=== PATIENT | male | born 1950 | race Caucasian/White ===

== ENCOUNTER → 2018-11-11 | Outpatient (REF) | payer MEDICARE ==
[2018-11-11 13:54] LABS: BASO # 0.1 10^3/uL (0.0-0.2); BASO % 1.6 % (0.0-1.0); EOS # 0.2 10^3/uL (0.0-0.50); EOS % 2.8 % (0.0-3.0); HEMATOCRIT 45.4 % (42.0-52.0); HEMOGLOBIN 15.3 g/dl (13.5-17.5); LYMPH # 1.7 10^3/uL (1.5-4.5); LYMPH % 20.9 % (24.0-44.0); MEAN CORPUSCULAR HEMOGLOBIN 29.6 pg (27.0-33.0); MEAN CORPUSCULAR HGB CONC 33.7 g/dl (32.0-36.5); MEAN CORPUSCULAR VOLUME 87.8 fl (80.0-96.0); MONO # 0.8 10^3/uL (0.0-0.8); MONO % 9.9 % (0.0-5.0); NEUTROPHILS # 5.1 10^3/uL (1.8-7.7); NEUTROPHILS % 64.5 % (36.0-66.0); PLATELET COUNT, AUTOMATED 236 10^3/uL (150-450); RED BLOOD COUNT 5.17 10^6/uL (4.30-6.10); WHITE BLOOD COUNT 7.9 10^3/uL (4.0-10.0)
[2018-11-11 14:07] LABS: ALBUMIN 3.5 GM/DL (3.2-5.2); ALT/SGPT 69 U/L (12-78); BILIRUBIN,TOTAL 0.5 MG/DL (0.2-1.0); BLOOD UREA NITROGEN 12 MG/DL (7-18); CALCIUM LEVEL 9.1 MG/DL (8.8-10.2); CARBON DIOXIDE LEVEL 31 MEQ/L (21-32); CHLORIDE LEVEL 104 MEQ/L (98-107); CHOLESTEROL LEVEL 196 MG/DL (<200); CHOLESTEROL RISK RATIO 6.322 (<5); CREATININE FOR GFR 1.12 MG/DL (0.70-1.30); FREE T4 1.51 NG/DL (0.76-1.46); GLOMERULAR FILTRATION RATE > 60.0 (>49); GLUCOSE, FASTING 97 MG/DL (70-100); HDL CHOLESTEROL 31 MG/DL (>40); LDL CHOLESTEROL 146 MG/DL (<100); NON-HDL-C 165 MG/DL; POTASSIUM SERUM 4.3 MEQ/L (3.5-5.1); SODIUM LEVEL 140 MEQ/L (136-145); TOTAL PROTEIN 6.9 GM/DL (6.4-8.2); TRIGLYCERIDES LEVEL 93 MG/DL (<150)
[2018-11-11 14:09] LABS: TOTAL 25(OH) VITAMIN D 22.1 NG/ML (30.0-100.0)
[2018-11-11 16:04] LABS: HEMOGLOBIN A1c 6.5 %
[2018-11-13 00:09] LABS: Lyme Disease IgG/IgM Antibodie <0.91 ISR (0.00-0.90); Lyme Disease IgM Ab Quantitati <0.80 index (0.00-0.79)
== END ==
LOC: M LAB REF 12:23
PROVIDERS: ATTEND Family Medicine
DX: M25.50 Pain in unspecified joint (principal); R53.83 Other fatigue; Q89.2 Congenital malformations of other endocrine glands; Z12.5 Encounter for screening for malignant neoplasm of prostate; E66.9 Obesity, unspecified; E88.81 Metabolic syndrome and other insulin resistance; R60.0 Localized edema
CPT/HCPCS: 80053; 80061; 82306; 83036; 84439; 84443; 85025; 86617; G0103

== ENCOUNTER 2025-02-19 17:23 | Inpatient (IN) | payer MEDICARE, OTHER ==
[~2025-02-19] VITALS: Ht 170.2 cm; Wt 144.6 kg
[2025-02-19 18:42] LABS: BASO # 0.1 10^3/uL (0.0-0.2); BASO % 0.8 % (0.0-1.0); EOS # 0.0 10^3/uL (0.0-0.5); EOS % 0.2 % (0.0-3.0); LYMPH # 2.0 10^3/uL (1.5-5.0); LYMPH % 14.0 % (24.0-44.0); MONO # 0.9 10^3/uL (0.0-0.8); MONO % 6.0 % (2.0-8.0); NEUTROPHILS # 11.4 10^3/uL (1.5-8.5); NEUTROPHILS % 78.6 % (36.0-66.0); PLATELET COUNT, AUTOMATED 184 10^3/uL (150-450)
[2025-02-19] MEDS: ONDANSETRON 4MG/2ML VIAL IV ONE ×2 (18:45→22:49)
[2025-02-19] MEDS: NS (Normal Saline) 0.9% 1,000 ML IV ONE ×2 (18:45→22:49)
[2025-02-19 19:08] LABS: CK-MB VALUE MASS 8.6 NG/ML (<3.6)
[2025-02-19 19:10] LABS: ALT/SGPT 58.0 U/L (7.0-40); AST/SGOT 96.0 U/L (<34); CALCIUM LEVEL 8.9 MG/DL (8.3-10.6); CARBON DIOXIDE LEVEL 23.0 MMOL/L (20-31); CHLORIDE LEVEL 107.0 MMOL/L (98-107); CREATININE FOR GFR 1.17 MG/DL (0.70-1.30); GLOMERULAR FILTRATION RATE 65.0 (>42); MAGNESIUM LEVEL 1.5 MG/DL (1.8-2.4); POTASSIUM SERUM 5.3 MMOL/L (3.5-5.1); SODIUM LEVEL 141.0 MMOL/L (136-145)
[2025-02-19 19:12] LABS: CPK CREATINE PHOSPHOKINASE 551.0 U/L (46-171); MB/CK RELATIVE INDEX 1.56 (< OR =4)
[2025-02-19] MEDS ORDERED: ISOVUE-370 76% 100 ML VIAL As Ordered ONE (19:14)
[2025-02-19] MEDS: MAG SULF 1GM/100ML (MAG RUN) 1 GM in IV 1 EA IV ONE ×2 (20:24→21:35)
[2025-02-19 20:36] LABS: CK-MB VALUE MASS 9.1 NG/ML (<3.6)
[2025-02-19 20:37] LABS: CPK CREATINE PHOSPHOKINASE 480.0 U/L (46-171); MB/CK RELATIVE INDEX 1.89 (< OR =4)
[2025-02-19 21:44] LABS: CK-MB VALUE MASS 10.1 NG/ML (<3.6)
[2025-02-19 21:54] LABS: KETONE, URINE AUTO RFX NEGATIVE (NEGATIVE); LEUKOCYTE ESTERASE UR AUTO RFX NEGATIVE (NEGATIVE); NITRITE, URINE AUTO RFX NEGATIVE (NEGATIVE); RBC, URINE AUTO RFX 0 /HPF (0-3); SQUAM EPITHELIAL CELL UR AURFX 0 /HPF (0-6); WBC, URINE AUTO RFX 0 /HPF (0-3)
[2025-02-19 21:54] LABS: CPK CREATINE PHOSPHOKINASE 500.0 U/L (46-171); MB/CK RELATIVE INDEX 2.02 (< OR =4)
[2025-02-19] MEDS: IPRATROPIUM 0.5 MG/ALBUTEROL 2.5 MG INH SOL UD 3 ML NEB ONE (22:14)
[2025-02-20] MEDS: PANTOPRAZOLE 40MG VIAL IV ONE (00:41)
[2025-02-20] MEDS: SUCRALFATE 1 GM TAB PO ONE (00:41)
[2025-02-20] MEDS ORDERED: SUCRALFATE 1 GM TAB PO ONE (00:45)
[2025-02-20 01:51] LABS: INR 1.32
[2025-02-20] MEDS: PANTOPRAZOLE SODIUM 40 MG in DEXTROSE 5% (D5W) ADV/MINI-BAG 50 ML IV SCH (02:18)
[2025-02-20 02:28] LABS: PLATELET COUNT, AUTOMATED 135 10^3/uL (150-450)
[2025-02-20 02:49] LABS: INR 1.33
[2025-02-20 02:52] LABS: ALT/SGPT 51.0 U/L (7.0-40); AST/SGOT 89.0 U/L (<34); CALCIUM LEVEL 8.6 MG/DL (8.3-10.6); CARBON DIOXIDE LEVEL 23.0 MMOL/L (20-31); CHLORIDE LEVEL 108.0 MMOL/L (98-107); CREATININE FOR GFR 1.32 MG/DL (0.70-1.30); GLOMERULAR FILTRATION RATE 56.3 (>42); POTASSIUM SERUM 4.5 MMOL/L (3.5-5.1); SODIUM LEVEL 142.0 MMOL/L (136-145)
[2025-02-20 04:30] LABS: PLATELET COUNT, AUTOMATED 138 10^3/uL (150-450)
[2025-02-20] MEDS: SUCRALFATE SUSP 1GM/10ML UD PO SCH (08:09)
[2025-02-20] MEDS ORDERED: ROSU20TA86 PO (08:16)
[2025-02-20] MEDS ORDERED: SPIR100T3 PO (08:16)
[2025-02-20] MEDS ORDERED: VENTAER INH (08:16)
[2025-02-20] MEDS ORDERED: POTA-151 PO (08:16)
[2025-02-20] MEDS ORDERED: SYNT100T PO (08:16)
[2025-02-20] MEDS ORDERED: BUDE10.7 IH (08:16)
[2025-02-20] MEDS ORDERED: IPRA0.00 INH (08:16)
[2025-02-20] MEDS ORDERED: TORS20TA2 PO (08:16)
[2025-02-20] MEDS ORDERED: HOME MED LIST COMPLETE! XX SCH (08:20)
[2025-02-20] MEDS: OCTREOTIDE ACETATE 100 MCG/ML VIAL **IV ADMINISTRATION ONLY IV SCH (10:39)
[2025-02-20] MEDS: ONDANSETRON 4MG/2ML VIAL IV PRN (10:48)
[2025-02-20] MEDS ORDERED: E-Z-HD 98% w/w 340 GM SUSP BTL As Ordered ONE (11:24)
[2025-02-20] MEDS ORDERED: E-Z-GAS II EFFERVESCENT PACKET (SODIUM BICARB./CITRIC ACID/SIMETHICONE) As Ordered ONE (11:24)
[2025-02-20] MEDS ORDERED: E-Z-PAQUE 96% w/w SUSP 176 GM BTL As Ordered ONE (11:24)
[2025-02-20 17:55] LABS: PLATELET COUNT, AUTOMATED 158 10^3/uL (150-450)
[2025-02-20] MEDS: IPRATROPIUM 0.5 MG/ALBUTEROL 2.5 MG INH SOL UD 3 ML NEB PRN (22:51)
[2025-02-21 02:11] VITALS: BP 124/56; TEMP 98.6; O2SAT 93
[2025-02-21 04:00] VITALS: BP 121/59; TEMP 98.9; O2SAT 97
[2025-02-21 06:11] LABS: PLATELET COUNT, AUTOMATED 138 10^3/uL (150-450)
[2025-02-21 06:36] LABS: ALT/SGPT 55.0 U/L (7.0-40); AST/SGOT 82.0 U/L (<34); CALCIUM LEVEL 8.6 MG/DL (8.3-10.6); CARBON DIOXIDE LEVEL 25.0 MMOL/L (20-31); CHLORIDE LEVEL 113.0 MMOL/L (98-107); CREATININE FOR GFR 1.47 MG/DL (0.70-1.30); GLOMERULAR FILTRATION RATE 49.4 (>42); POTASSIUM SERUM 4.3 MMOL/L (3.5-5.1); SODIUM LEVEL 148.0 MMOL/L (136-145)
[2025-02-21] MEDS ORDERED: ALBUTEROL 90 MCG/ACT 8 GM HFA INHALER INH PRN (07:00)
[2025-02-21] MEDS: cefTRIAXone SOD 1 GM in DEXTROSE 5% (D5W) ADV/MINI-BAG 50 ML IV SCH (07:48)
[2025-02-21] MEDS: LEVOTHYROXINE 100 MCG TABLET (0.1 MG) PO SCH (07:48)
[2025-02-21 08:00] VITALS: BP 136/60; TEMP 98.7; O2SAT 96
[2025-02-21] MEDS: FLUTICASONE PROPIONATE 0.05% NASAL SPRAY 16 GM NARES SCH (09:00)
[2025-02-21] MEDS: D5W/LR 1,000 ML IV SCH (09:21)
[2025-02-21] MEDS: ROSUVASTATIN 10 MG TAB PO SCH (09:34)
[2025-02-21 12:00] VITALS: BP 137/58; TEMP 98.6; O2SAT 94
[2025-02-21] MEDS: IPRATROPIUM 0.5 MG/ALBUTEROL 2.5 MG INH SOL UD 3 ML INH PRN (15:05)
[2025-02-21 16:00] VITALS: BP 124/55; TEMP 99; O2SAT 97
[2025-02-21] MEDS: LORATADINE 10 MG TAB PO SCH (16:03)
[2025-02-21 20:00] VITALS: BP 147/65; TEMP 97.5; O2SAT 96
[2025-02-21] MEDS: IPRATROPIUM 0.5 MG/ALBUTEROL 2.5 MG INH SOL UD 3 ML NEB SCH (20:00)
[2025-02-21] MEDS: MAG SULF 1GM/100ML (MAG RUN) 1 GM in IV 1 EA IV SCH (20:24)
== END 2025-02-21 21:07 | disposition short-term general hospital (02) | DRG 378 ==
LOC: M ED 18:48 → M ED INP 18:49 → INTOOBSV 02-20 03:08 → OBSVTOIN 02-20 03:08 → M MS4PR 02-21 02:12 → UNDODISOB 02-21 21:07
PROVIDERS: ADMIT Internal Medicine; ATTEND Student in an Organized Health Care Education/Training Program
DX: K92.1 Melena (principal); N17.9 Acute kidney failure, unspecified; D62 Acute posthemorrhagic anemia; K92.0 Hematemesis; I50.9 Heart failure, unspecified; J44.9 Chronic obstructive pulmonary disease, unspecified; E03.9 Hypothyroidism, unspecified; E78.5 Hyperlipidemia, unspecified; Z79.899 Other long term (current) drug therapy; Z79.890 Hormone replacement therapy; R91.8 Other nonspecific abnormal finding of lung field; D72.829 Elevated white blood cell count, unspecified; E83.42 Hypomagnesemia; K74.60 Unspecified cirrhosis of liver; E66.01 Morbid (severe) obesity due to excess calories; Z88.7 Allergy status to serum and vaccine; G47.33 Obstructive sleep apnea (adult) (pediatric); E27.8 Other specified disorders of adrenal gland